=== PATIENT | female | born 1960 | race Caucasian/White ===

== ENCOUNTER 2017-07-25 11:25 | Day surgery (SDC) | payer OTHER | END 2017-07-25 15:15 | disposition home or self-care (01) | LOC: GIL 11:25 | DX: B96.81 Helicobacter pylori [H. pylori] as the cause of diseases classified elsewhere (principal); K21.0 Gastro-esophageal reflux disease with esophagitis; K29.70 Gastritis, unspecified, without bleeding; I10 Essential (primary) hypertension; E78.5 Hyperlipidemia, unspecified; F17.200 Nicotine dependence, unspecified, uncomplicated; E66.9 Obesity, unspecified; Z68.35 Body mass index [BMI] 35.0-35.9, adult | CPT/HCPCS: 43239; 87081 ==

== ENCOUNTER 2017-08-17 14:06 | Day surgery (SDC) | payer OTHER ==
[2017-08-17] MEDS ORDERED: METOCLOPRAMIDE 10 MG INJ (14:52)
[2017-08-17] MEDS ORDERED: ONDANSETRON 4 MG INJ (14:52)
[2017-08-17] MEDS ORDERED: hydrALAzine 20 MG INJ (14:52)
[2017-08-17] MEDS ORDERED: PROPOFOL 80 ML (15:18)
== END 2017-08-17 16:48 | disposition home or self-care (01) ==
LOC: GIL 14:06
DX: Z12.11 Encounter for screening for malignant neoplasm of colon (principal); D12.5 Benign neoplasm of sigmoid colon; K64.8 Other hemorrhoids; I10 Essential (primary) hypertension; E78.5 Hyperlipidemia, unspecified; F17.200 Nicotine dependence, unspecified, uncomplicated
CPT/HCPCS: 45380; 88305